=== PATIENT | female | born 1970 | race Caucasian/White ===

== ENCOUNTER 2023-02-09 08:40 | Emergency (ER) | payer BC ==
[2023-02-09] MEDS ORDERED: Sodium Chloride 0.9% 10 ML Syringe FLUSH PRN (08:43)
[2023-02-09] MEDS ORDERED: cloNIDine 0.1 MG Tab PO ONE (08:44)
[2023-02-09 09:09] LABS: BASOPHILS ABSOLUTE AUTO 0.03 K/uL (0.00-0.20); BASOPHILS PERCENT AUTO 0.4 % (0.0-2.0); EOSINOPHILS ABSOLUTE AUTO 0.21 K/uL (0.00-0.50); HEMATOCRIT 41.8 % (34.0-46.0); HEMOGLOBIN 13.9 g/dL (11.7-15.5); LYMPHOCYTES ABSOLUTE AUTO 1.11 K/uL (0.50-3.50); LYMPHOCYTES PERCENT AUTO 15.7 % (10.0-50.0); MEAN CORPUSCULAR HEMOGLOBIN 30.5 pg (28.2-33.3); MEAN CORPUSCULAR HGB CONC 33.3 g/dL (31.7-36.0); MEAN CORPUSCULAR VOLUME 91.9 fL (84.0-98.0); MONOCYTES ABSOLUTE AUTO 0.75 K/uL (0.00-1.00); MONOCYTES PERCENT AUTO 10.6 % (2.0-14.0); NEUTROPHILS ABSOLUTE AUTO 4.95 K/uL (1.40-7.00); NEUTROPHILS PERCENT AUTO 70.3 % (45.0-80.0); PLATELET COUNT,PLT 191 K/uL (150-350); RED BLOOD CELL COUNT 4.55 M/uL (3.77-5.09); RED CELL DISTRIBUTION WIDTH 14.4 % (11.2-14.1); WHITE BLOOD CELL COUNT,WBC 7.1 K/uL (4.0-10.2)
[2023-02-09 09:37] LABS: ALANINE AMINOTRANSFERASE,ALT 34 U/L (12-78); ALBUMIN 3.4 g/dL (3.4-5.0); ALKALINE PHOSPHATASE 75 IU/L (46-116); ANION GAP 7.7 meq/L (7-15); ASPARTATE AMNIOTRANSFERASE,AST 28 U/L (15-37); BILIRUBIN TOTAL 0.5 mg/dL (0.2-1.0); BLOOD UREA NITROGEN,BUN 7 mg/dL (7-18); CALCIUM 9.1 mg/dL (8.5-10.1); CARBON DIOXIDE,CO2 26.3 mmol/L (21.0-32.0); CHLORIDE,CL 105 mmol/L (98-107); CREATINE KINASE,CK 89 U/L (26-308); CREATININE 0.92 mg/dL (0.51-1.17); GLUCOSE RANDOM 102 mg/dL (70-99); INR 0.9; MAGNESIUM 1.8 mg/dL (1.8-2.4); POTASSIUM,K 3.8 mmol/L (3.5-5.1); PRO B-TYPE NATRIUR PEPT,BNPPRO 283 pg/mL (0-125); PROTEIN TOTAL,TP 6.9 g/dL (6.4-8.2); PROTHROMBIN TIME 9.4 SEC (9.0-11.1); PTT,PARTIAL THROMBOPLSTIN TIME 26.3 SEC (23.6-29.8); SODIUM,NA 139 mmol/L (136-145)
[2023-02-09 09:39] LABS: ESTIMATED GFR 75 mL/min (>=60)
[2023-02-09 09:43] LABS: APPEARANCE,URINE CLEAR; BILIRUBIN,URINE NEGATIVE (NEGATIVE); COLOR,URINE YELLOW; GLUCOSE,URINE NEGATIVE (NEGATIVE); KETONES,URINE NEGATIVE (NEGATIVE); LEUKOCYTE ESTERASE,URINE NEGATIVE (NEGATIVE); NITRITE,URINE NEGATIVE (NEGATIVE); OCCULT BLOOD,URINE NEGATIVE (NEGATIVE); PROTEIN,URINE NEGATIVE (NEGATIVE); UROBILINOGEN,URINE 0.2 E.U./dL (0.2-1.0)
== END 2023-02-09 13:15 | disposition home or self-care (01) ==
LOC: LL.ED 08:40
DX: I10 Essential (primary) hypertension (principal); I25.2 Old myocardial infarction; Z79.82 Long term (current) use of aspirin
CPT/HCPCS: 36415; 71045; 80053; 81003; 82550; 83605; 83735; 83880; 84484; 85025; 85379; 85610; 85730; 93005; 93010; 99284; A9270-GY

== ENCOUNTER 2023-02-10 09:38 | Emergency (ER) | payer BC ==
[2023-02-10] MEDS ORDERED: Labetalol 20 MG/4 ML Syringe IVPUSH ONE ×3 (09:41→10:30)
[2023-02-10 09:57] LABS: BASOPHILS ABSOLUTE AUTO 0.03 K/uL (0.00-0.20); BASOPHILS PERCENT AUTO 0.4 % (0.0-2.0); EOSINOPHILS PERCENT AUTO 2.8 % (0.0-5.0); HEMATOCRIT 41.7 % (34.0-46.0); LYMPHOCYTES ABSOLUTE AUTO 1.33 K/uL (0.50-3.50); LYMPHOCYTES PERCENT AUTO 18.4 % (10.0-50.0); MEAN CORPUSCULAR HEMOGLOBIN 30.8 pg (28.2-33.3); MEAN CORPUSCULAR HGB CONC 33.6 g/dL (31.7-36.0); MEAN CORPUSCULAR VOLUME 91.9 fL (84.0-98.0); MONOCYTES PERCENT AUTO 11.1 % (2.0-14.0); NEUTROPHILS ABSOLUTE AUTO 4.85 K/uL (1.40-7.00); NEUTROPHILS PERCENT AUTO 67.3 % (45.0-80.0); PLATELET COUNT,PLT 200 K/uL (150-350); RED BLOOD CELL COUNT 4.54 M/uL (3.77-5.09); RED CELL DISTRIBUTION WIDTH 14.3 % (11.2-14.1); WHITE BLOOD CELL COUNT,WBC 7.2 K/uL (4.0-10.2)
[2023-02-10 10:20] LABS: ALANINE AMINOTRANSFERASE,ALT 31 U/L (12-78); ALBUMIN 3.6 g/dL (3.4-5.0); ALKALINE PHOSPHATASE 79 IU/L (46-116); ANION GAP 9.1 meq/L (7-15); ASPARTATE AMNIOTRANSFERASE,AST 25 U/L (15-37); BILIRUBIN TOTAL 0.8 mg/dL (0.2-1.0); BLOOD UREA NITROGEN,BUN 9 mg/dL (7-18); CALCIUM 8.8 mg/dL (8.5-10.1); CARBON DIOXIDE,CO2 25.9 mmol/L (21.0-32.0); CHLORIDE,CL 105 mmol/L (98-107); CREATININE 0.92 mg/dL (0.51-1.17); GLUCOSE RANDOM 97 mg/dL (70-99); POTASSIUM,K 3.8 mmol/L (3.5-5.1); PRO B-TYPE NATRIUR PEPT,BNPPRO 207 pg/mL (0-125); PROTEIN TOTAL,TP 7.2 g/dL (6.4-8.2); SODIUM,NA 140 mmol/L (136-145)
[2023-02-10 10:21] LABS: ESTIMATED GFR 75 mL/min (>=60)
[2023-02-10 10:36] LABS: PROTHROMBIN TIME 9.9 SEC (9.0-11.1); PTT,PARTIAL THROMBOPLSTIN TIME 26.5 SEC (23.6-29.8)
[2023-02-10] MEDS: Sodium Chloride 0.9% 10 ML Syringe FLUSH PRN ×2 (10:38→11:33)
[2023-02-10] MEDS ORDERED: Iopamidol 755 Mg/ML 100 ML Bottle IVPUSH STA (10:45)
[2023-02-10] MEDS ORDERED: niCARdipine/Normal Saline 20 MG in Premix Bag 1 BAG IV SCH (11:15)
[2023-02-10] MEDS ORDERED: Acetaminophen 325 MG Tab PO ONE (11:24)
[2023-02-10] MEDS ORDERED: Ondansetron 4 MG/2 ML SDV IVPUSH ONE (11:25)
[2023-02-10] MEDS ORDERED: Sodium Chloride 0.9% 1,000 ML IV SCH (11:45)
[2023-02-10] MEDS ORDERED: Nitroglycerin/D5W 25 MG/250 ML BOTTLE IV SCH (11:45)
== END 2023-02-10 13:57 ==
LOC: LL.ED 09:38
DX: I10 Essential (primary) hypertension (principal); I25.2 Old myocardial infarction; F17.210 Nicotine dependence, cigarettes, uncomplicated; Z79.899 Other long term (current) drug therapy
CPT/HCPCS: 36415; 70450; 70496; 70498; 80053; 83880; 84484; 85025; 85610; 85730; 93005; 96365; 96366; 96375; 96376; 99285-25; A9270-GY; J2405; J3490; J7030; Q9967